=== PATIENT | female | born 1980 | race Caucasian/White ===

== ENCOUNTER → 2019-09-21 | Outpatient (CLI) | payer MEDICAID ==
[~2019-09-21] MED LIST: CODE-54 PO; CPR500T PO; Flagyl; HYDR-3583 PO; IBP600T1 PO; NAPR550T PO; PREN1TAB39 PO
--- NOTE | 2019-09-21 12:10 | Diagnostic Imaging Report ---
INDICATION: OB ultrasound for dates. FINDINGS: There is a single live intrauterine fetus present. [place]-rump length of 2.65 cm consistent with 19 week 4 day gestation. heart rate of 151. Placenta appears to be developing anteriorly. No evidence of subchorionic fluid. Amniotic cavity appears normal. There are no maternal adnexal masses noted. IMPRESSION: 9 week 4 day live intrauterine by current biometric measurements. No abnormalities noted. Dictated by: Dictated on workstation # [id number]
== END ==
LOC: RAD 09:47
PROVIDERS: ATTEND Family Medicine
DX: Z34.81 Encounter for supervision of other normal pregnancy, first trimester (principal); Z3A.09 9 weeks gestation of pregnancy
CPT/HCPCS: 76801; 76817

== ENCOUNTER → 2019-11-23 | Outpatient (CLI) | payer MEDICAID ==
--- NOTE | 2019-11-23 14:12 | Diagnostic Imaging Report ---
INDICATION: survey. TECHNIQUE: Multiple real-time grayscale images were obtained over the gravid uterus. COMPARISON: 09/21/2019. FINDINGS: There is a single live fetus in a breech presentation. heart rate was recorded at 147 BPM. Placenta is anterior. No previa is detected. Amniotic fluid index is 10.3 cm. survey shows the kidneys, bladder, and stomach to be unremarkable. brain is unremarkable. There is a four-chamber heart. There is a three-vessel cord with normal insertion. spine is unremarkable. nose and lips were somewhat limited due to position. Maternal adnexa was not evaluated. Biometrical measurements are as follows: Biparietal 4.35 cm, age 19 weeks 2 days. Head circumference 15.47 cm, age 18 weeks 3 days. Abdominal circumference 12.66 cm, age 18 weeks 2 days. Femur length 2.67 cm, age 18 weeks 1 days. Sonographic estimate age: 18 weeks 4 days. Sonographic estimated date of delivery: 04/21/2020. Estimated Weight: 231 gm (+/- 34 gm). LMP percentile: 61%. heart rate: 147 beats per minute. number: 1 of 1. IMPRESSION: Single live IUP of approximately 18 to 19 weeks gestational age showing normal interval growth when compared with prior exam. No complicating features are identified. Dictated by: Dictated on workstation # [id number]
== END ==
LOC: RAD 10:46
PROVIDERS: ATTEND Family Medicine
DX: Z36.89 Encounter for other specified antenatal screening (principal); Z3A.18 18 weeks gestation of pregnancy
CPT/HCPCS: 76805

== ENCOUNTER → 2020-01-14 | Outpatient (CLI) | payer MEDICAID | LOC: WSo 10:35 | PROVIDERS: ATTEND Family Medicine | DX: O36.0191 Maternal care for anti-D [Rh] antibodies, unspecified trimester, fetus 1 (principal); Z3A.00 Weeks of gestation of pregnancy not specified | CPT/HCPCS: 96372 ==

== ENCOUNTER → 2020-02-03 | Outpatient (CLI) | payer MEDICAID ==
[2020-02-03 14:20] VITALS: BP 119/70
== END ==
LOC: WSo 13:42
PROVIDERS: ATTEND Family Medicine
DX: O36.8190 Decreased fetal movements, unspecified trimester, not applicable or unspecified (principal); Z3A.00 Weeks of gestation of pregnancy not specified
CPT/HCPCS: 59025

== ENCOUNTER 2020-04-17 05:57 | Inpatient (IN) | payer MEDICAID ==
[2020-04-17] VITALS (68 sets, daily range): BP systolic 108–168; BP diastolic 52–103
[~2020-04-17] VITALS: Ht 154.9 cm; Wt 56.7 kg
--- NOTE | 2020-04-17 05:58 | NUR ---
AMNA LYON presented to unit via from ED, accompanied by SELF, with c/o INDUCTION. AMNA LYON weighed, gowned, voided, and to bed. EFHM and TOCO applied, VS taken. AMNA LYON oriented to bed controls, call light, TV, heat, and A/C controls. ABOVE PER IMKEY RN. FURTHER ASSESSMENTS TO BE CARRIED OUT PER DAY RN.
[2020-04-17] MEDS ORDERED: D5 LR IV SOLUTION 1,000 ML IV SCH (06:52)
[2020-04-17] MEDS ORDERED: OXYTOCIN PRE-MIX DRIP 500 ML IV SCH (06:52)
--- NOTE | 2020-04-17 06:52 | History & Physical-OB ---
OB - Chief Complaint & HPI Date/Time Date of Admission: Date of Admission: Apr 17, 2020 at 05:57 Date seen by a Provider: Apr 17, 2020 Time Seen by a Provider: 06:40 Chief Complaint/History OB-Reason for Admission/Chief: Induction of Labor Hx : 3 Hx Para: 2 Expected Date of Delivery: Apr 24, 2020 Gestational Age in Weeks: 39 Admission Nurse Assessment Rev: Yes History of Labs GBS negative Allergies and Home Medications Allergies Coded Allergies: No Known Allergies (Verified Allergy, Unknown, 08/07/06) Home Medications Ciprofloxacin 500 Mg Tablet, 1 TAB PO BID, (Reported) Hydrocodone Bit/Acetaminophen 1 Tab Tab, 1-2 EA PO Q 4 - 6 HR PRN PRN, (Reported) Naproxen Sodium 550 Mg Tablet, 550 MG PO BID PRN, (Reported) Vits W-Ca,Fe,Fa(<1MG) 1 Each Tablet, 1 EACH PO DAILY, (Reported) Patient Home Medication List Home Medication List Reviewed: Yes OB - History Hx of Present Care: Yes Ultrasounds: Normal mid trimester US Obstetrical Complications: None Medical Complications: None Obstetrical History Hx Termination: No Hx Multiple Gestation: No Hx Stillbirth: No Hx Complication: No Hx Induced Hypertens: No Hx Maternal Gestational Diabet: No Delivery History Hx Dystocia: No Hx Large For Gestational Age I: No Hx Small for Gestational Age I: No Hx Section: No Hx Vaginal Delivery Post C-Sec: No Hx Blood Disorders: No Patient Past Medical History no chronic medical problems OB - Admission Exam Physical Exam HEENT: Moist Membranes Heart: Rhythm Normal Lungs: Clear Abdomen: Gravid Cervical Dilatation: 2cm Effacement: 50% Station: -3 Membranes: Intact Heart Rate: 130's Accelerations: Accelerations Present Short Term Variability: Present Contractions on Admission: < 5 Minutes Apart Intensity: Mild Raman Scoring Tool (Modified) Dilation (cm): 1-2cm (1) Effacement (%): 31-51% (1) Descent/Station: -3 (0) Cervix Consistency: Medium(1) Cervix Position: Posterior (0) Add 1 point for: Each previous vaginal delivery (1) Raman Score: 5 OB - Assessment/Plan/Diagnosis Assessment Assessment: induction of labor Admission Dx 1. IUP at term 39 weeks Admission Status: Inpatient Order (span 2 midnights) Reason for Inpatient Admission: L&D Plan Plan: Induction Induction Method: AROM Other Plan -epidural -pitocin PAWEL SEARS MD Apr 17, 2020 06:52
[2020-04-17 07:09] LABS: BASOPHILS % (AUTO) 0 % (0-10); EOSINOPHILS # (AUTO) 0.1 10^3/uL (0.0-0.3); EOSINOPHILS % (AUTO) 1 % (0-10); HEMATOCRIT 30 % (35-52); HEMOGLOBIN 10.4 g/dL (11.5-16.0); LYMPHOCYTES # (AUTO) 2.6 10^3/uL (1.0-4.0); LYMPHOCYTES % (AUTO) 19 % (12-44); MEAN CORPUSCULAR HEMOGLOBIN 32 pg (25-34); MEAN CORPUSCULAR HGB CONC 35 g/dL (32-36); MEAN CORPUSCULAR VOLUME 92 fL (80-99); MEAN PLATELET VOLUME 11.2 fL (9.0-12.2); MONOCYTES # (AUTO) 0.9 10^3/uL (0.0-1.0); MONOCYTES % (AUTO) 7 % (0-12); NEUTROPHILS # (AUTO) 9.9 10^3/uL (1.8-7.8); NEUTROPHILS % (AUTO) 72 % (42-75); PLATELET COUNT 255 10^3/uL (130-400); WHITE BLOOD COUNT 13.8 10^3/uL (4.3-11.0)
[2020-04-17] MEDS ORDERED: AMPICILLIN FOR IV USE 2,000 MG in WATER (STERILE) FOR INJECTION 14.8 ML IV SCH (08:09)
[2020-04-17] MEDS ORDERED: AMPICILLIN FOR IV USE 2,000 MG VIAL ONE (08:11)
[2020-04-17] MEDS ORDERED: WATER (STERILE) FOR INJECTION 20 ML ONE (08:11)
[2020-04-17] MEDS ORDERED: fentaNYL 2 mcg/ml BUPIVA 0.125 100 ML ONE (08:45)
[2020-04-17] MEDS ORDERED: BUPIVACAINE 0.25% 30 ML (SENSORCAINE) VIAL ONE ×3 (09:03→14:08)
[2020-04-17] MEDS ORDERED: fentaNYL INJECTION 100 MCG/2 ML AMP ONE ×2 (09:03→14:08)
[2020-04-17] MEDS ORDERED: LACTATED RINGERS 1,000 ML IV ONE (09:06)
[2020-04-17] MEDS ORDERED: fentaNYL 2 mcg/ml BUPIVA 0.125 100 ML IV SCH (09:06)
[2020-04-17] MEDS ORDERED: NALOXONE 0.4 MG/ML 1 ML (NARCAN) VIAL IV PRN (09:15)
[2020-04-17] MEDS ORDERED: CATHETER FLUSH 10 ML SYR IV PRN (09:15)
--- NOTE | 2020-04-17 11:05 | NUR ---
ANESTHESIA AT BEDSIDE. MANAGING EPIDURAL, SEE ANESTHESIA NOTES FOR FURTHER.
[2020-04-17] MEDS ORDERED: AMPICILLIN FOR IV USE 1,000 MG in WATER (STERILE) FOR INJECTION 7.4 ML IV SCH (12:15)
[2020-04-17] MEDS ORDERED: WATER (STERILE) FOR INJECTION 10 ML ONE (12:26)
[2020-04-17] MEDS ORDERED: AMPICILLIN FOR IV USE 1,000 MG/VIAL ONE (12:26)
[2020-04-17] MEDS ORDERED: LIDOCAINE PF 2% 5 ML (XYLOCAINE) VIAL ONE (13:12)
--- NOTE | 2020-04-17 13:15 | NUR ---
ANESTHESIA AT BEDSIDE. MANAGING EPIDURAL, SEE ANESTHESIA NOTES FOR FURTHER.
[2020-04-17] MEDS ORDERED: CATHETER FLUSH 10 ML SYR IV SCH ×2 (14:00→22:00)
--- NOTE | 2020-04-17 14:10 | NUR ---
ANESTHESIA AT BEDSIDE TO REPLACE EPIDURAL.
[2020-04-17] MEDS ORDERED: MEPIVACAINE (CARBOCAINE) 2% 50 ML VIAL ONE (14:49)
[2020-04-17] MEDS ORDERED: ONDANSETRON 4 MG/2 ML (SDV) Z0FRAN ONE (15:48)
[2020-04-17] MEDS ORDERED: IBUPROFEN 600 MG (MOTRIN) TAB PO ONE (15:50)
[2020-04-17] MEDS ORDERED: WITCH HAZEL(TUCKS) 40 EA JAR ONE (15:50)
[2020-04-17] MEDS ORDERED: BENZOCAINE/MENTHOL (DERMOPLAST) 60 ML CAN TP ONE (15:50)
[2020-04-17] MEDS ORDERED: DIBUCAINE (NUPERCAINAL) 1% OINT 30 GM ONE (15:50)
[2020-04-17] MEDS ORDERED: DIBUCAINE (NUPERCAINAL) 1% OINT 30 GM TOP PRN (16:00)
[2020-04-17] MEDS ORDERED: WITCH HAZEL(TUCKS) 40 EA JAR TOP PRN ×2 (16:00)
[2020-04-17] MEDS ORDERED: MEASLES,MUMPS,RUBELLA 1 EA INJ SQ ONE (16:00)
[2020-04-17] MEDS ORDERED: IBUPROFEN 600 MG (MOTRIN) TAB PO SCH (16:00)
[2020-04-17] MEDS ORDERED: ONDANSETRON 4 MG/2 ML (SDV) Z0FRAN IVP ONE (16:00)
[2020-04-17] MEDS ORDERED: TETANUS,DIPTH,PERTUSS P/F (BOOSTRIX) 0.5 ML VIAL IM ONE (16:00)
[2020-04-17] MEDS ORDERED: BENZOCAINE/MENTHOL (DERMOPLAST) 60 ML CAN TP PRN (16:00)
--- NOTE | 2020-04-17 17:12 | OB Labor & Delivery Record ---
L&D History Date of Service Date of Service: Apr 17, 2020 History Expected Date of Delivery: Apr 24, 2020 Gestational Age in Weeks: 39 Hx : 3 Hx Para: 2 Complications Events: Routine care Operative Indications (Cesarea: N/A-Vaginal Delivery Intrapartal Events: None Other Complications Ampicillin given for GBS prophlaxis L&D Stage1 Stage One Onset of Labor - Date: Apr 17, 2020 Onset of Labor - Time: 06:48 Monitors and Tracing Monitor Mode: Internal Heart Rate: 130 Monitor Accelerations: Uniform Monitor Decelerations: Variable Station: -2 Senior Living Variability: Average (6-10) Short Term Variability: Present Presentation: Vertex Vital Signs VS - Last 72 Hours, by Label 04/17/20 04/17/20 04/17/20 04/17/20 07:15 07:18 07:48 08:01 Temp 36.8 36.8 Pulse 81 81 69 71 Resp 18 18 18 18 B/P (MAP) 117/91 (100) 126/75 (92) 114/79 (91) Pulse Ox 98 98 O2 Delivery Room Air Room Air Room Air Room Air 04/17/20 04/17/20 04/17/20 04/17/20 08:18 08:33 08:48 09:03 Temp 36.7 Pulse 78 70 83 89 Resp 18 18 18 18 B/P (MAP) 142/78 (99) 135/76 (95) 134/80 (98) 168/99 (122) O2 Delivery Room Air Room Air Room Air Room Air 04/17/20 04/17/20 04/17/20 04/17/20 09:13 09:16 09:19 09:22 Pulse 77 80 82 94 Resp 18 18 18 18 B/P (MAP) 147/73 (97) 145/79 (101) 131/78 (95) 137/77 (97) Pulse Ox 98 99 O2 Delivery Room Air Room Air Room Air Room Air 04/17/20 04/17/20 04/17/20 04/17/20 09:25 09:28 09:31 09:34 Pulse 93 91 90 91 Resp 18 18 18 18 B/P (MAP) 140/90 (107) 129/77 (94) 143/86 (105) 133/63 (86) Pulse Ox 98 98 98 99 O2 Delivery Room Air Room Air Room Air Room Air 04/17/20 04/17/20 04/17/20 04/17/20 09:40 09:43 09:46 09:52 Temp 36.7 Pulse 85 84 88 74 Resp 18 18 18 18 B/P (MAP) 122/63 (82) 124/66 (85) 126/68 (87) 125/64 (84) Pulse Ox 98 97 97 98 O2 Delivery Room Air Room Air Room Air Room Air 04/17/20 04/17/20 04/17/20 04/17/20 09:58 10:00 10:05 10:10 Pulse 81 86 82 78 Resp 18 18 18 18 B/P (MAP) 124/67 (86) 120/67 (84) 134/73 (93) 122/70 (87) Pulse Ox 98 98 98 97 O2 Delivery Room Air Room Air Room Air Room Air 04/17/20 04/17/20 04/17/20 04/17/20 10:15 10:20 10:25 10:31 Pulse 72 80 79 72 Resp 18 18 18 18 B/P (MAP) 129/79 (96) 132/81 (98) 136/76 (96) 139/88 (105) Pulse Ox 99 99 99 99 O2 Delivery Room Air Room Air Room Air Room Air 04/17/20 04/17/20 04/17/20 04/17/20 10:35 10:40 10:45 10:51 Pulse 83 81 74 78 Resp 18 18 18 18 B/P (MAP) 119/85 (96) 123/74 (90) 128/70 (89) 130/77 (94) Pulse Ox 99 98 99 99 O2 Delivery Room Air Room Air Room Air Room Air 04/17/20 04/17/20 04/17/20 04/17/20 11:00 11:03 11:09 11:24 Temp 36.6 Pulse 82 82 71 73 Resp 18 18 18 18 B/P (MAP) 133/65 (87) 149/93 (111) 132/79 (96) 146/71 (96) Pulse Ox 99 100 98 98 O2 Delivery Room Air Room Air Room Air Room Air 04/17/20 04/17/20 04/17/20 04/17/20 11:40 11:53 12:09 12:23 Temp 36.1 Pulse 73 72 75 77 Resp 18 18 18 18 B/P (MAP) 129/76 (93) 126/78 (94) 126/81 (96) 118/71 (87) Pulse Ox 98 98 100 100 O2 Delivery Room Air Room Air Room Air Room Air 04/17/20 12:38 Pulse 78 Resp 18 B/P (MAP) 122/77 (92) Pulse Ox 100 O2 Delivery Room Air Signs of Distress by FHT Signs of Distress no Rupture of Membranes Spontaneous Ruture of Membrane: No Amniotic Membrane Rupture Time: 0648 Amniotic Membrane Fluid Desc.: Clear Induction/Anesthesia Epidural Cath Placement - Time: 1421 L&D Stage2 Stage Two Stage II Date: Apr 17, 2020 Stage II Time: 15:27 Monitors and Tracing Monitor Mode: Internal Heart Rate: 130 Monitor Accelerations: Uniform Monitor Decelerations: Variable Director Plans Variability: Average (6-10) Short Term Variability: Present Position: Left Occiput Transverse Presentation: Vertex Signs of Distress by FHT Signs of Distress no Cord Descript/Complications Cord Vessel Description: 3 Vessels Delivery Type Infant Delivery Method: Spontaneous Vaginal Episiotomy/Perineal Laceration Laceraction(s)/Extensions: Yes Episiotomy Description: Midline Sutures Used: Vicryl Condition of Infant Delivery 1 minute Comment: 7 5 minute Comment: 9 Condition of Infant Condition of Infant: Living Exam: No Observed Abnormalities Resuscitation Resuscitation: N/A - Spontaneous Resp L&D Stage3 Stage Three Stage III Date: Apr 17, 2020 Stage III Time: 15:32 Pictocin Pitocin Administration mu/min: 16 Pitocin ml/hr: 16 Pitocin Administration Comment: 1348 PITOCIN INCREASED PER PROTOCOL. Placenta Delivery Placenta Delivery: Spontaneous Delivery Summary Summary Estimated blood loss (mL): 100 Condition of Delivery Examined: Cervix Examined Post Hemorrhage: No Intervention Required none PAWEL SEARS MD Apr 17, 2020 17:12
--- NOTE | 2020-04-17 18:00 | NUR ---
PT UP TO BATHROOM AND VOIDING. +PERICARE AND LINENS CHANGED. PT TRANSFERRED FROM -320 TO -308 VIA AMBULATORY IN STABLE CONDITION WITHOUT SIGNS OF DISTRESS ACCOMPANIED BY THIS RN AND . CALL LIGHT WITHIN REACH, DINNER TRAY AND FRESH ICE WATER GIVEN. NO OTHER NEEDS AT THIS TIME.
[2020-04-17] MEDS ORDERED: DOCUSATE SODIUM 100 MG (COLACE) CAP PO ONE (20:51)
--- NOTE | 2020-04-17 20:55 | NUR ---
INITIAL SHIFT ASSESSMENT DONE. PT SITTING UP IN BED ATTEMPTING TO FEED INFANT. DENIES ANY NEEDS AT THIS TIME.
[2020-04-17] MEDS: DOCUSATE SODIUM 100 MG (COLACE) CAP PO SCH (20:58)
[2020-04-17] MEDS ORDERED: DOCUSATE SODIUM 100 MG (COLACE) CAP PO SCH (21:00)
--- NOTE | 2020-04-17 22:32 | NUR ---
MOTRIN ADMINISTERED. PT DENIES ANY NEEDS AT THIS TIME.
[2020-04-17] MEDS: IBUPROFEN 600 MG (MOTRIN) TAB PO SCH (22:33)
--- NOTE | 2020-04-18 | NUR ---
PT RESTING WHILE RESTS. HAS VOICED NO NEEDS OR C/O'S.
[2020-04-18 01:46] VITALS: BP 140/90
--- NOTE | 2020-04-18 01:46 | NUR ---
REASSESSMENT WITH NO CHANGES SINCE PREVIOUS ASSESSMENT.
--- NOTE | 2020-04-18 03:45 | NUR ---
PT RESTING OFF ET ON. DENIES ANY NEEDS AT THIS TIME.
--- NOTE | 2020-04-18 05:15 | NUR ---
LAB HERE FOR ORDERED AM LABS. PT DENIES ANY NEEDS.
[2020-04-18 05:24] LABS: BASOPHILS # (AUTO) 0.1 10^3/uL (0.0-0.1); BASOPHILS % (AUTO) 0 % (0-10); EOSINOPHILS # (AUTO) 0.1 10^3/uL (0.0-0.3); EOSINOPHILS % (AUTO) 1 % (0-10); HEMATOCRIT 30 % (35-52); HEMOGLOBIN 10.1 g/dL (11.5-16.0); LYMPHOCYTES # (AUTO) 2.9 10^3/uL (1.0-4.0); LYMPHOCYTES % (AUTO) 15 % (12-44); MEAN CORPUSCULAR HEMOGLOBIN 32 pg (25-34); MEAN CORPUSCULAR HGB CONC 34 g/dL (32-36); MEAN CORPUSCULAR VOLUME 94 fL (80-99); MONOCYTES # (AUTO) 1.3 10^3/uL (0.0-1.0); MONOCYTES % (AUTO) 7 % (0-12); NEUTROPHILS # (AUTO) 14.6 10^3/uL (1.8-7.8); NEUTROPHILS % (AUTO) 76 % (42-75); PLATELET COUNT 235 10^3/uL (130-400); WHITE BLOOD COUNT 19.1 10^3/uL (4.3-11.0)
[2020-04-18] MEDS: IBUPROFEN 600 MG (MOTRIN) TAB PO SCH ×3 (06:06→17:33)
[2020-04-18] MEDS ORDERED: PRENATAL VITAMIN 1 EA TAB PO SCH ×2 (07:00)
--- NOTE | 2020-04-18 07:41 | Anesthesia-Regional Post-Op ---
Regional Patient Condition Mental Status: Alert, Oriented x3 Circulation: Same as Pre-Op Headache: Absent Sensation: Full Recovery Motor Block: Absent Post Op Complications Complications None Follow Up Care/Instructions Patient Instructions None needed. Anesthesia/Patient Condition Patient is doing well, no complaints, stable vital signs, no apparent adverse anesthesia problems. No complications reported per nursing. KINGS STEWART CRNA Apr 18, 2020 07:41
[2020-04-18] MEDS: DOCUSATE SODIUM 100 MG (COLACE) CAP PO SCH (07:56)
[2020-04-18 08:00] VITALS: BP 132/74
[2020-04-18 12:10] VITALS: BP 122/74
--- NOTE | 2020-04-18 15:10 | NUR ---
CARE ASSUMED OF THIS PT.
[2020-04-18 16:00] VITALS: BP 123/72
--- NOTE | 2020-04-18 16:00 | NUR ---
VSS. HOPING TO GO HOME. INFANT IN NURSERY FOR 24 HOUR SCREENING AND LABS.
--- NOTE | 2020-04-18 16:48 | Discharge Summary ---
Diagnosis/Chief Complaint Date of Admission Apr 17, 2020 at 05:57 Date of Discharge April 18, 2020 Discharge Date: Apr 18, 2020 Discharge Time: 16:45 Admission Diagnosis Admission Diagnosis 1. Intrauterine at term 39 weeks gestation Discharge Diagnosis 1. Intrauterine at term 39 weeks gestation Reason Hospital Visit 39-year-old 3 now term 3 who initially presented to labor and delivery in the morning of April 17, 2020 for induction of labor at term. Her care was began in first trimester and essentially unremarkable. Her EDC is April 24, 2020. Discharge Summary-OBS Procedures 1. Epidural per anesthesia 2. Spontaneous vaginal delivery 3. Repair of midline episiotomy Discharge Physical Examination Allergies: Coded Allergies: NKANo Known Allergies (Verified Allergy, Unknown, 08/07/06) Vitals & I&Os Vital Signs Date Time Temp Pulse Resp B/P (MAP) Pulse Ox O2 Delivery O2 Flow Rate FiO2 04/18/20 12:10 36.9 70 16 122/74 (90) 96 Room Air General Appearance: No Acute Distress Respiratory: Clear to Auscultation Cardiovascular: Regular Rate Abdominal: Soft (with uterus firm) Skin: No Rashes Neuro: Normal Gait, Normal Speech Hospital Course Was the Problem List Reviewed?: Yes patient was admitted during the morning of April 17, 2020. She underwent amniotomy with placement of scalp electrode. She ultimately required Pitocin augmentation. She received epidural per anesthesia. She ultimately had a second epidural due to not achieving adequate relief with the first one. She ultimately went on to completion and delivered a term viable male with Apgars of 7 at 1 minute and 9 at 5 minutes. She had a midline episiotomy that was repaired with 3-0 Vicryl. Estimated blood loss at 100 cc. Following delivery she underwent routine care orders. She had no complications during the remainder of hospital stay. She tolerated regular diet and was noted to void urine without difficulty. She did not have any chest pain or leg pain. Her hemoglobin in the morning of April 18 was 10.4 and this was compared to the hemoglobin after delivery of 10.1. She was felt ready for dismissal during the afternoon of April 18, 2020. Discharge Instructions to patient/family Please see electronic discharge instructions given to patient. Discharge Medications Reviewed and agree with Discharge Medication list on patient's Discharge Instruction sheet Clinical Quality Measures DVT/VTE Risk/Contraindication: Risk Factor Score Per Nursin RFS Level Per Nursing on Admit: 1=Low/No VTE PPX PAWEL SEARS MD Apr 18, 2020 16:48
--- NOTE | 2020-04-18 16:50 | Discharge Inst-Women's Service ---
Discharge Inst-Women's Serv Depart Medication/Instructions Instructions May utilize naproxen 500 mg every 12 hours for cramping. May also substitute ibuprofen 200 mg [id number] and take 3 every 8 hours as needed for cramps. Problems Reviewed?: Yes Consults/Follow Up Additional Follow Up: Yes (with Dr. Sears in 6 weeks.) Activity Driving Instructions: No Driving for 1 Week Nothing Inside Vagina: No [place] (for 6 weeks) Diet Discharge Diet: Regular Diet Return to The Hospital For: s below Symptoms to Report to : Bleeding Excessive, Fever Over 101 Degrees F, Vaginal Discharge Foul For Any Problems or Questions: Contact Your Physician PAWEL SEARS MD Apr 18, 2020 16:50
--- NOTE | 2020-04-18 16:50 | NUR ---
PLAN FOR DISMISSAL.
--- NOTE | 2020-04-18 17:45 | NUR ---
DISCHARGE INSTRUCTIONS REVIEWED WITH COPY TO PT. STATES UNDERSTANDING OF ALL INSTRUCTIONS AND NEED TO F/U SCHEDULED AND NEEDED.
[2020-04-18 18:15] VITALS: BP 123/72
--- NOTE | 2020-04-18 18:15 | NUR ---
DISMISSED FROM [facility] VIA W/C WITH IN STABLE CONDITION TO AWAITING FAMILY CAR ACC BY KVNG CEJA RN.
== END 2020-04-18 18:15 | disposition home or self-care (01) | DRG 807 ==
LOC: LDRP 05:57
PROVIDERS: ADMIT Family Medicine; ATTEND Family Medicine
PROC: 10E0XZZ Delivery of Products of Conception, External Approach (ICD-10-PCS; principal; 2020-04-17)
PROC: 0W8NXZZ Division of Female Perineum, External Approach (ICD-10-PCS; 2020-04-17)
PROC: 10907ZC Drainage of Amniotic Fluid, Therapeutic from Products of Conception, Via Natural or Artificial Opening (ICD-10-PCS; 2020-04-17)
DX: O80 Encounter for full-term uncomplicated delivery (principal); Z37.0 Single live birth; Z3A.39 39 weeks gestation of pregnancy; Z23 Encounter for immunization
CPT/HCPCS: 36415; 83033; 85025; 86850; 86870; 86900; 86901; 90715

== ENCOUNTER → 2022-09-19 | Outpatient (CLI) | payer MEDICAID ==
--- NOTE | 2022-09-19 13:02 | Diagnostic Imaging Report ---
Indication: Routine screening. No prior mammograms are available for comparison. This a baseline study. 2-D and 3-D bilateral screening mammography was performed with CAD. CAD is utilized. The current study was also evaluated with a Computer Aided Detection (CAD) system. Both breasts are heterogeneously dense, limiting the sensitivity of mammography. No mass or malignant-appearing microcalcifications are seen. Axillae are unremarkable. IMPRESSION: BI-RADS Category 1 No mammographic features suspicious for malignancy are identified. ACR BI-RADS Category 1: Negative. Result letter will be mailed to the patient. Note: At least 10% of breast cancer is not imaged by mammography. Dictated by: Dictated on workstation # [id number]
== END ==
LOC: RAD 10:15
PROVIDERS: ATTEND Family Medicine
DX: Z12.31 Encounter for screening mammogram for malignant neoplasm of breast (principal)
CPT/HCPCS: 77063; 77067